=== PATIENT | female | born 1995 | race Caucasian/White ===

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

== ENCOUNTER 2020-07-23 09:44 | Emergency (ER) | payer OTHER ==
[~2020-07-23 09:44] MED LIST: COLACE 100MG C100 MG PO; IBUPROFEN600 MG PO; NAPROSYN500 MG PO; PRENATAL VITAM1 EAC8 PO
[2020-07-23 10:26] LABS: HEMOGLOBIN 12.1 gm/dl (12.3-15.3); RED BLOOD COUNT 4.01 M/UL (4.00-5.10); WHITE BLOOD COUNT 6.2 K/UL (4.5-11.0)
[2020-07-23 11:08] LABS: BUN/CREATININE RATIO 13 (0-10)
== END 2020-07-23 10:49 | disposition home or self-care (01) ==
LOC: ER1 09:44
PROVIDERS: Emergency Medicine
DX: O99.891 Other specified diseases and conditions complicating pregnancy (principal); R10.2 Pelvic and perineal pain; O20.9 Hemorrhage in early pregnancy, unspecified; Z3A.01 Less than 8 weeks gestation of pregnancy
CPT/HCPCS: 76817; 80053; 81001; 83690; 84702; 85025; 99284

== ENCOUNTER 2020-10-18 17:34 | Emergency (ER) | payer OTHER | END 2020-10-18 18:38 | disposition home or self-care (01) | LOC: ER1 17:34 | DX: O9A.211 Injury, poisoning and certain other consequences of external causes complicating pregnancy, first trimester (principal); R10.9 Unspecified abdominal pain; J45.909 Unspecified asthma, uncomplicated | CPT/HCPCS: 99283 ==

== ENCOUNTER 2021-02-03 20:30 | Inpatient (IN) | payer OTHER ==
[~2021-02-03] VITALS: Ht 160 cm; Wt 93.0 kg
[2021-02-04 08:54] LABS: HEMOGLOBIN 12.9 gm/dl (12.3-15.3); RED BLOOD COUNT 4.17 M/UL (4.00-5.10); WHITE BLOOD COUNT 11.8 K/UL (4.5-11.0)
[2021-02-04] MEDS ORDERED: PRENATABS RX T1 EACH PO (10:26)
[2021-02-04] MEDS ORDERED: IBUPROFEN600 MG PO (17:40)
[2021-02-04] MEDS ORDERED: COLACE 100MG C100 MG PO (17:40)
[2021-02-05 06:16] LABS: HEMOGLOBIN 11.3 gm/dl (12.3-15.3)
== END 2021-02-05 19:01 | disposition home or self-care (01) | DRG 806 ==
LOC: GENOP 20:30 → OB 02-04 08:09
PROVIDERS: Obstetrics & Gynecology; ADMIT Obstetrics & Gynecology
PROC: 4A1HX4Z Monitoring of Products of Conception, Cardiac Electrical Activity, External Approach (ICD-10-PCS; principal; 2021-02-04)
PROC: 10E0XZZ Delivery of Products of Conception, External Approach (ICD-10-PCS; 2021-02-04)
PROC: 10907ZC Drainage of Amniotic Fluid, Therapeutic from Products of Conception, Via Natural or Artificial Opening (ICD-10-PCS; 2021-02-04)
DX: O60.14X0 Preterm labor third trimester with preterm delivery third trimester, not applicable or unspecified (principal); O36.0930 Maternal care for other rhesus isoimmunization, third trimester, not applicable or unspecified; Z37.0 Single live birth; Z3A.34 34 weeks gestation of pregnancy; F41.9 Anxiety disorder, unspecified
CPT/HCPCS: 36415; 51702; 81001; 82800; 83518; 85014; 85018; 85025; 85461; 86850; 86900; 86901; J0595; J2210; J2590; J2790; J7120; U0002

== ENCOUNTER → 2021-04-02 | Outpatient (CLI) | payer OTHER ==
[~2021-04-02] MED LIST changes: +PRENATABS RX T1 EACH PO
== END ==
LOC: RAD 12:35
DX: M54.5 Low back pain (principal); J45.909 Unspecified asthma, uncomplicated; G43.909 Migraine, unspecified, not intractable, without status migrainosus
CPT/HCPCS: 72072; 72110